=== PATIENT | female | born 2000 | race Hispanic/Latino ===

== ENCOUNTER → 2024-05-28 | Day surgery (SDC) | payer BC ==
[~2024-05-28] MED LIST: DICYCLOMINE HCL10 MG PO; FENTANYL CITRATE/PF 100MCG/2 ML INJ ONE; FIBER TABS625 MG PO; LIDOCAINE HCL 2% LOCAL INJ 5 ML SDV VIAL INJ ONE; MIDAZOLAM HCL 2 MG/2 ML VIAL ONE; PANTOPRAZOLE SO40 MG PO; PROBIOTIC1 EAC1 PO; PROPOFOL IV EMULSION 10 MG/ML 20 ML VIAL ONE
[2024-05-28] MEDS: LACTATED RINGER'S 1,000 ML ONE (13:40)
[2024-05-28 17:06] VITALS: TEMP 98.1
[2024-05-28 17:20] VITALS: BP 116/74; PULSE 80; RESP 16; O2SAT 99
== END | disposition home or self-care (01) ==
LOC: OR 13:22
PROVIDERS: ATTEND Internal Medicine Gastroenterology
DX: K62.5 Hemorrhage of anus and rectum (principal); K64.8 Other hemorrhoids; K62.89 Other specified diseases of anus and rectum; R19.8 Other specified symptoms and signs involving the digestive system and abdomen; K29.70 Gastritis, unspecified, without bleeding; K21.9 Gastro-esophageal reflux disease without esophagitis; Z68.34 Body mass index [BMI] 34.0-34.9, adult
CPT/HCPCS: 45378; 81025; J2001; J2250; J2704; J3010; J7121